=== PATIENT | male | born 1990 | race Two or more races ===

== ENCOUNTER 2024-05-21 23:03 | Emergency (ER) | payer MEDICAID ==
[~2024-05-21] VITALS: Ht 185.4 cm; Wt 75.0 kg
[2024-05-21 23:12] VITALS: TEMP 98.1
[2024-05-21 23:15] VITALS: BP 134/72; PULSE 108; RESP 16; O2SAT 97
[2024-05-21] MEDS: CEPHALEXIN MONOHYDRATE 500 MG CAPSULE PO ONE (23:42)
[2024-05-21] MEDS: SULFAMETHOX/TRIMETH DS 800-160 MG/TABLET PO ONE (23:42)
== END 2024-05-22 00:03 ==
LOC: EMS 23:03
DX: L03.115 Cellulitis of right lower limb (principal); L03.116 Cellulitis of left lower limb; F19.10 Other psychoactive substance abuse, uncomplicated
CPT/HCPCS: 99283